=== PATIENT | female | born 1975 | race Caucasian/White ===

== ENCOUNTER 2020-10-06 10:17 | Emergency (ER) | payer OTHER, SELFPAY ==
[2020-10-06 10:18] VITALS: BP 112/75; PULSE 57; RESP 14; TEMP 37; O2SAT 100
--- NOTE | 2020-10-06 10:31 | ED.WOUNDLAC ---
HPI - Wound/Laceration General Chief Complaint: Wound/Laceration Stated Complaint: R palm lac Time Seen by Provider: 10/06/20 10:31 Source: patient Mode of arrival: ambulatory Limitations: no limitations History of Present Illness HPI narrative: Previously well 45-year-old woman comes in today complaining of a laceration on her right palm. She states that she cut it on a nail sticking out of a Pallet. It had been outdoors. She denies any numbness or tingling. She does not recall her last tetanus shot. Onset (ago): hour(s) (1) Extremity Location: Right: hand Place: home Patient tetanus UTD: No Context: accidental Associated symptoms: pain Treatments prior to arrival: other (washed wound) Review of Systems Integumentary/Breasts: Skin/Breast: Denies pruritus, Denies erythema and Denies rash Neurologic: Denies numbness Hematologic/Lymphatic: Hematologic/Lymphatic: Denies easy bleeding and Denies easy bruising PMFSH Surgical History Surgical History H/O: Hx of tonsillectomy Social History Social History (Updated 10/06/20 @ 10:35 by Bobby Smith MD) Smoking status: Never smoker Substance use: never Living arrangements: with family Exam Const: General: no acute distress and alert Orientation/consciousness: patient oriented x3 Eyes: Conjunctivae: conjunctivae normal EOM: EOMs intact bilaterally Resp: Effort & Inspection: normal respiratory effort and not labored Auscultation: clear to auscultation bilaterally, no crackles, no rales and no rhonchi Cardio: Rate: regular rate Rhythm: regular rhythm Heart sounds: no murmurs Skin: General skin exam: normal color, no jaundice and no pallor Rashes: no rashes Other: Two cm laceration over the hypothenar region of the right palm. 3 mm of the laceration is full thickness. Is clean without erythema, foreign body, swelling, induration or drainage. Neuro: General: patient oriented x3, moves all extremities and no focal motor deficits Speech: normal speech Gait exam (Neuro): Normal gait present Extrem: General: normal to inspection and no clubbing, cyanosis or edema Psych: Appearance: grossly normal and well kempt Mental Status: mental status grossly normal Affect: normal affect Attitude: cooperative Discharge Plan Discharge Clinical Impression: Laceration Patient Disposition: Home, Self-Care Condition: Stable Instructions: Laceration (ED) Follow-up/Referrals: Claudio Handley MD [Primary Care Provider] -
[2020-10-06 10:42] VITALS: RESP 16; O2SAT 100
== END 2020-10-06 10:43 | disposition home or self-care (01) ==
PROVIDERS: Emergency Provider Emergency Medicine; PCP Family Medicine
DX: S61.411A Laceration without foreign body of right hand, initial encounter (principal); W45.0XXA Nail entering through skin, initial encounter
CPT/HCPCS: 90471; 90715; 99282

== ENCOUNTER → 2023-05-19 16:07 | Outpatient (CLI) | payer OTHER, SELFPAY ==
--- NOTE | ~2023-05-19 | XR_ITS ---
XR shoulder LT min 2V DATE: 05/19/2023 16:29 INDICATION: Left shoulder pain TECHNIQUE: 4 views COMPARISON: None FINDINGS: No fracture or dislocation, periosteal reaction or bone destruction or abnormal soft tissue calcification. Normal alignment at the acromioclavicular and glenohumeral joints. IMPRESSION: Negative Reviewed, dictated and finalized at location A. IMPRESSION: Negative
== END ==
PROVIDERS: PCP Family Medicine; Visit Provider Family Medicine
DX: M25.512 Pain in left shoulder (principal)
CPT/HCPCS: 73030

== ENCOUNTER 2023-05-28 07:56 | Outpatient (RCR) | payer OTHER, SELFPAY ==
[2023-05-28 07:08] VITALS: BP_SYST 163
--- NOTE | 2023-05-28 08:08 | OPREHPOC ---
Outpatient Therapy Plan of Care This is a Multidisciplinary Plan of Care that may contain components documented by all disciplines (PT, OT, and ST.) PT Problem 1 PT Problem #1 Knowledge Deficit PT Goal 1 Goal Patient to demonstrate independence with HEP Target Visit 4 PT Problem 2 PT Problem #2 Pain PT Goal 1 Goal 1. Patient to report highest pain at 2/10 2. Paitent to report ability to sleep with no disturbance due to L shoulder pain Target Visit 8 PT Problem 3 PT Problem #3 Impaired Range of Motion PT Goal 1 Goal Patient to demonstrate 160 deg of L shoulder flexion and 60 deg of L shoulder Er to return to ADLs at PLOF Target Visit 8 PT Problem 4 PT Problem #4 Impaired Strength PT Goal 1 Goal Patient to demonstrate 4+/5 L shoulder strength to return to house hold chores at PLOF Target Visit 8 PT Problem 5 PT Problem #5 Impaired Functional Mobil PT Goal 1 Goal 1. Patient to demonstrate 20% improvement in QuickDASH 2. Patient to report ability to dress with no increase in L shoulder pain Target Visit 8
--- NOTE | 2023-05-28 08:08 | PTOPEVAL1 ---
Assessment and note entered by Lilian Boateng DPT Evaluation Information Assessment Status Evaluation Diagnosis L shoulder pain Onset 05/20/23 Subjective Information Patient reports that over the past 5-6 months she has had L shoulder pain. She reports pain has become more frequent. She reports pain is presents from the top of the shoulder down to the elbow. She reports she first noticed it when reaching back in her van to give things to her kids. She also reports she has difficuty with dressing, sleeping and reaching away from her body. She does not recall an injury. She had a negative x-ray. She denies previous neck pain. No NT into arm. Reported Pain Level Pain Score 1: Self Report Assessment PT Clinical Summary Patient is a 47 year old female who presents to PT with L shoulder pain. Patient demonstrates decreased L shoulder AROM, decreased L shoulder strength and tenderness at the L bicep tendon impairing her ability to dress, sleep and reach out and behind her body for house hold tasks. She would benefit from skilled PT to address impairments and return to PLOF. Plan of Care Interventions Electrical Stimulation,Hot Pack/Cold Pack,Manual Therapy,Mechanical Traction,Neuro Re-education, Patient/Caregiver Educati,Therapeutic Activities, Therapeutic Exercise PT Services Indicated Yes Treatment Frequency and 2x weekly for 8 visits Duration These treatments will address the objective and functional deficits as defined above. The patient will be advanced safely and appropriately in order for the patient to progress towards his/her prior level of function. Additional exercises will be introduced and as well as a comprehensive home exercise program upon discharge, if needed, ?to ensure carryover of functional gains achieved in the clinic. This treatment plan has been reviewed and agreement upon by the patient.
[2023-06-29 16:58] VITALS: BP_SYST 163
--- NOTE | 2023-06-30 07:10 | OPREHPOC ---
Outpatient Therapy Plan of Care This is a Multidisciplinary Plan of Care that may contain components documented by all disciplines (PT, OT, and ST.) PT Problem 1 PT Problem #1 Knowledge Deficit PT Goal 1 Goal Patient to demonstrate independence with HEP Target Visit 4 Progress Not Met PT Problem 2 PT Problem #2 Pain PT Goal 1 Goal 1. Patient to report highest pain at 2/10 2. Paitent to report ability to sleep with no disturbance due to L shoulder pain Target Visit 8 Progress Not Met PT Problem 3 PT Problem #3 Impaired Range of Motion PT Goal 1 Goal Patient to demonstrate 160 deg of L shoulder flexion and 60 deg of L shoulder Er to return to ADLs at PLOF Target Visit 8 Progress Not Met PT Problem 4 PT Problem #4 Impaired Strength PT Goal 1 Goal Patient to demonstrate 4+/5 L shoulder strength to return to house hold chores at PLOF Target Visit 8 Progress Not Met PT Problem 5 PT Problem #5 Impaired Functional Mobil PT Goal 1 Goal 1. Patient to demonstrate 20% improvement in QuickDASH 2. Patient to report ability to dress with no increase in L shoulder pain Target Visit 8 Progress Not Met
--- NOTE | 2023-06-30 07:10 | PTOPDC ---
Assessment and note entered by Lilian Boateng DPT Evaluation Information Assessment Status Re-evaluation Diagnosis L shoulder pain Onset 05/20/23 Subjective Information Ptaient reports since start of PT range of motion has improved. She reports she still has sporatic pain that radiates to the bicep and elbow and she describes it as a shooting pain. She reports she continues to have difficulty with sleeping and is awaken due to pain. She reports compliance with HEP. She does not a follow up appointment scheduled. Reported Pain Level Pain Score 0: Self Report Assessment PT Clinical Summary Mrs. Bassett was seen for 10 visits of skilled PT with limited progress. She has not met any goals. She continues to have pain with sleeping, dressing and performing house hold tasks. She has improved ROM but continues to lack full range and strength. She would benefit from follow up with MD regarding additional imaging and next step in care. Plan of Care PT Services Indicated No
== END 2023-06-30 16:29 | disposition home or self-care (01) ==
LOC: CHSPT 07:56
PROVIDERS: PCP Family Medicine; Visit Provider Family Medicine
DX: M25.512 Pain in left shoulder (principal)
CPT/HCPCS: 97014; 97110; 97140; 97161; G0283

== ENCOUNTER 2023-06-08 06:15 | Day surgery (SDC) | payer OTHER, SELFPAY ==
[2023-05-21 14:49] VITALS: BMI 21.4
[2023-06-08 07:25] VITALS: BP 104/75; PULSE 57; RESP 14; TEMP 36.9; O2SAT 98
[2023-06-08] MEDS: LACTATED RINGERS 1,000 ML 150 ML IV CONT (07:25)
--- NOTE | 2023-06-08 08:07 | PM.HPGS ---
History of Present Illness History of Present Illness Consent: Risks, benefits, and alternatives have been discussed and questions answered. Patient agrees to proceed with procedure. Chief complaint: Neoplasm Screening Narrative: Genesis Bassett is a 47 year old female here for first screening colonoscopy Review of Systems Constitutional: Constitutional: Denies headache(s) and Denies weakness Eyes: Eyes: Denies blurry vision ENT: Reports Normal hearing present, Denies headache(s) and Denies neck pain Cardiovascular: Cardiovascular: Denies chest pain and Denies dyspnea Respiratory: Respiratory: Denies dyspnea Gastrointestinal: Gastrointestinal: Reports no additional gastrointestinal complaints Genitourinary: Genitourinary: Denies dysuria Musculoskeletal: Musculoskeletal: Denies neck pain Integumentary/Breasts: Skin/Breast: Denies dry skin Neurologic: Reports Normal hearing present, Denies headache(s) and Denies weakness Psychiatric: Psychiatric: Denies anxiety Endocrine: Endocrine: Denies change in body appearance Hematologic/Lymphatic: Hematologic/Lymphatic: Denies easy bleeding Allergic/Immunologic: Allergic/Immunologic: Denies urticaria PMF Past Medical History Medical History (Updated 06/08/23 @ 08:07 by Des Lopez MD) Colon cancer screening Surgical History Surgical History H/O: Hx of tonsillectomy Social History Social History (Updated 10/06/20 @ 10:35 by Bobby SmithMD) Smoking status: Never smoker Alcohol intake: current Drinks per week: 0 Alcohol use details: 1-2 A MONTH Substance use: never Substance use type: does not use Living arrangements: with family Spiritual care concerns: No Meds Home Medications and Allergies Home Medications Medication Instructions Recorded Confirmed Type No Home Medications 10/06/20 06/08/23 History Allergies Allergy/AdvReac Type Severity Reaction Status Date / Time No Known Allergies Allergy Verified 06/08/23 07:08 Vital Signs Vital Signs - 24 hr 06/08/23 07:25 Temperature 98.5 F Pulse Rate 57 L Respiratory Rate 14 Blood Pressure 104/75 Pulse Oximetry 98 Oxygen Delivery Room Air Exam Const: General: comfortable and no acute distress HENMT: Face/Nose/Sinus: Normal nares present Eyes: General: appearance normal, both eyes and all related structures Neck: Neck: no JVD Resp: Auscultation: clear to auscultation bilaterally Cardio: Rate: regular rate Rhythm: regular rhythm GI: Inspection: non-distended GI Palp: Yes Soft to palpation Skin: General skin exam: normal color Neuro: General: gait normal Speech: normal speech Extrem: General: normal to inspection Psych: Mental Status: mental status grossly normal Assessment and Plan Assessment and plan (1) Colon cancer screening: Code(s): Z12.11 - Encounter for screening for malignant neoplasm of colon Status: Acute Assessment and Plan: colonoscopy
--- NOTE | 2023-06-08 08:07 | WPDANESEPPF ---
Anes - Initial Pre Proc Eval Procedure: Operation Date: 06/08/23 08:30 Proposed Procedures p Screening Colonoscopy - Des Lopez MD Date/Time: 06/08/23 08:07 Surgeon: Des Lopez MD Pre Op Diagnosis: Neoplasm Screening Patient Data Age: 47 Gender: F Height: 1.7 m Weight: 59.6 kg Last Vital Signs Temp 36.9 C 06/08/23 07:25 Pulse 57 L 06/08/23 07:25 Resp 14 06/08/23 07:25 BP 104/75 06/08/23 07:25 Pulse Ox 98 06/08/23 07:25 O2 Del Method Room Air 06/08/23 07:25 Allergies Allergy/AdvReac Type Severity Reaction Status Date / Time No Known Allergies Allergy Verified 06/08/23 07:08 Home Medications Medication Instructions Recorded Confirmed Type No Home Medications 10/06/20 06/08/23 History Patient hx anesthesia problems: none Family hx anesthesia problems: none Results Review: All pre-operative results and documents have been reviewed as part of the pre-operative evaluation. [facility] Past Medical History Medical History (Updated 06/08/23 @ 08:07 by Des Lopez MD) Colon cancer screening Surgical History Surgical History H/O: Hx of tonsillectomy Social History Social History Smoking status: Never smoker Alcohol intake: current Drinks per week: 0 Alcohol use details: 1-2 A MONTH Substance use: never Substance use type: does not use Living arrangements: with family Spiritual care concerns: No Anes - Eval Final PreProcedure Day of Procedure 06/08/23 08:07 Patient weight: normal Heart: regular rate and rhythm Lungs: clear to auscultation Airway: Mallampati scale class II Neurological: alert and oriented Last oral intake: >/= 8 hours ASA classification: I Emergent: no Anesthetic plan: proceed Anesthesia type and monitoring: general GIVS and standard monitoring Results Review: All pre-operative results and documents have been reviewed as part of the pre-operative evaluation. Informed Consent: The patient's anesthetic plan and its attendant risks and benefits were discussed with the patient/family/POA. Questions were solicited and answers provided to the satisfaction of the patient/family/POA.
[2023-06-08 08:31] VITALS: BP 89/87; PULSE 59; RESP 16; O2SAT 100
[2023-06-08 08:35] VITALS: BP 97/62
[2023-06-08 08:40] VITALS: BP 98/71; PULSE 61; RESP 16; O2SAT 100
[2023-06-08 08:49] VITALS: BP 105/58; PULSE 47; RESP 16; O2SAT 97
--- NOTE | 2023-06-08 09:03 | WPDANESPN ---
Anes - Prog Note Post-Op Date/Time: 06/08/23 09:03 Cardiovascular status: normal Respiratory status: normal Airway patency: baseline Mental status: baseline Post-Op hydration status: normal Vital Signs: Last Vital Signs Temp 36.9 C 06/08/23 07:25 Pulse 47 L 06/08/23 08:49 Resp 16 06/08/23 08:49 BP 105/58 L 06/08/23 08:49 Pulse Ox 97 06/08/23 08:49 O2 Del Method Room Air 06/08/23 08:49 Pain Score (VAS): 0 I/O: Intake & Output 06/07/23 06/08/23 06/08/23 23:59 07:59 15:59 Intake Total 500 Balance 500 Patient Feedback: Patient satisfied with anesthetic care.
== END 2023-06-08 09:00 | disposition home or self-care (01) ==
PROVIDERS: PCP Family Medicine; Visit Provider Internal Medicine Gastroenterology
PROC: 0DJD8ZZ Inspection of Lower Intestinal Tract, Via Natural or Artificial Opening Endoscopic (ICD-10-PCS; CPT 45378; principal; 2023-06-08 08:30)
DX: Z12.11 Encounter for screening for malignant neoplasm of colon (principal)
CPT/HCPCS: 45378